=== PATIENT | female | born 1995 | race Caucasian/White ===

== ENCOUNTER 2018-08-12 03:36 | Emergency (ER) | payer SELFPAY ==
[2018-08-12] MEDS ORDERED: NS 1,000 ML IV ONE (03:41)
--- NOTE | 2018-08-12 03:41 | EDPHY ---
H & P Stated Complaint: abd pain for months now diarrhea with poss blood Time Seen by Provider: 08/12/18 03:41 HPI/ROS: HPI CHIEF COMPLAINT: Bloody diarrhea HISTORY OF PRESENT ILLNESS: Patient is a 22-year-old female, history of attention deficit hyperactivity disorder, otherwise healthy, presents emergency room with diarrhea that she believes had blood in it. She describes it orange discoloration. She states she did not have anything to eat last 24 hr a she has been studying for final exams. She has not had any vomiting of blood. She states she denies any hematemesis or black tarry stool. She woke up this morning around 330 in the morning and had lower crampy abdominal pain it lasted very briefly probably 30 secs and then had a diarrhea bowel movement orange discoloration. No bright red blood. No fever, no vomiting. Denies any chest pain or shortness of breath. Her abdominal cramping resolved. Denies black stool black tarry stool, denies vomiting blood. She describes it as are orange light discoloration. Past Medical History: Patient denies significant medical history except for attention deficit hyperactivity disorder. She does believe she may have IBS. Past Surgical History: Denies surgical history Social History: Denies drug use alcohol tobacco. [employer] student. Family History: Noncontributory ROS REVIEW OF SYSTEMS: 10 Systems were reviewed and negative with the exception of the elements mentioned in the history of present illness. Exam Constitutional triage nursing summary reviewed, vital signs reviewed, awake/ alert. Eyes normal conjunctivae and sclera, EOMI, PERRLA. HENT normal inspection, atraumatic, moist mucus membranes, no epistaxis, neck supple/ no meningismus, no raccoon eyes. Respiratory clear to auscultation bilaterally, normal breath sounds, no respiratory distress, no wheezing. Cardiovascular rate normal, regular rhythm, no murmur, no edema, distal pulses normal. Gastrointestinal no significant tenderness on exam soft, non-tender, no rebound , no guarding, normal bowel sounds, no distension, no pulsatile mass. Genitourinary no CVA tenderness. Musculoskeletal no midline vertebral tenderness, full range of motion, no calf swelling, no tenderness of extremities, no meningismus, good pulses, neurovascularly intact. Skin pink, warm, & dry, no rash, skin atraumatic. Neurologic awake, alert and oriented x 3, AAOx3, moves all 4 extremities equally, motor intact, sensory intact, CN II-XII intact, normal cerebellar, normal vision, normal speech. Psychiatric normal mood/affect. Heme/Lymph/Immune no lymphadenopathy. Differential Diagnosis: Differential diagnosis includes but is not limited to and in no particular order: Diarrhea illness, colitis, diverticulitis, hemorrhoidal bleeding, dehydration, electrolyte disturbance Medical Decision Making: Plan for this patient IV establishment with blood draw , gentle IV fluids, basic labs, stool studies, re-evaluate. Re-evaluation: Patient is resting comfortably at this time 6:41 a.m.. She has not had any abdominal pain or vomiting here. Stool studies are pending. Negative for blood. Electrolytes appropriate, white blood cell count appropriate. Plan for discharge home. She is comfortable this plan. We discussed return precautions she understands to return to the emergency room she develops worsening abdominal pain, fever, vomiting, not doing well. Source: Patient - Personal History LMP (Females 10-55): 15-21 Days Ago Current Tetanus/Diphtheria Vaccine: Yes Current Tetanus Diphtheria and Acellular Pertussis (TDAP): Yes - Medical/Surgical History Hx Asthma: No Hx Chronic Respiratory Disease: No Hx Diabetes: No Hx Cardiac Disease: No Hx Renal Disease: No Hx Cirrhosis: No Hx Alcoholism: No Hx HIV/AIDS: No Hx Splenectomy or Spleen Trauma: No - Social History Smoking Status: Never smoked Constitutional: Initial Vital Signs Temperature (C) 37.1 C 08/12/18 03:37 Heart Rate 98 08/12/18 03:37 Respiratory Rate 16 08/12/18 03:37 Blood Pressure 91/71 L 08/12/18 03:37 O2 Sat (%) 96 08/12/18 03:37 O2 Delivery Mode Room Air Allergies/Adverse Reactions: Penicillins Allergy (Verified 08/12/18 03:40) Home Medications: Medication Instructions Recorded Adderall Xr 10 mg Capsule 08/12/18 Medical Decision Making - Data Points Laboratory Results: Laboratory Results 08/12/18 04:00 08/12/18 04:00 08/12/18 08/12/18 08/12/18 04:25 04:15 04:00 WBC RBC Hgb Hct MCV MCH MCHC RDW Plt Count MPV Neut % (Auto) Lymph % (Auto) [place] % (Auto) Eos % (Auto) Baso % (Auto) Nucleat RBC Rel Count Absolute Neuts (auto) Absolute Lymphs (auto) Absolute Monos (auto) Absolute Eos (auto) Absolute Basos (auto) Absolute Nucleated RBC Immature Gran % Immature Gran # PT INR APTT Sodium Potassium Chloride Carbon Dioxide Anion Gap BUN Creatinine Estimated GFR Glucose Calcium Total Bilirubin Conjugated Bilirubin Unconjugated Bilirubin AST ALT Alkaline Phosphatase Total Protein Albumin Lipase Beta HCG, Qual NEGATIVE Urine Color YELLOW Urine Appearance HAZY Urine pH 5.0 (5.0-7.5) Ur Specific [place] 1.028 (1.002-1.030) Urine Protein 2+ H (NEGATIVE) Urine Ketones 2+ H (NEGATIVE) Urine Blood NEGATIVE (NEGATIVE) Urine Nitrate NEGATIVE (NEGATIVE) Urine Bilirubin NEGATIVE (NEGATIVE) Urine Urobilinogen NEGATIVE EU EU (0.2-1.0) Ur Leukocyte Esterase NEGATIVE (NEGATIVE) Urine RBC 1-3 /hpf /hpf (0-3) Urine WBC 3-5 /hpf H /hpf (0-3) Ur Epithelial Cells TRACE /lpf /lpf (NONE-1+) Urine Mucus 4+ /lpf H /lpf (NONE-1+) Urine Glucose NEGATIVE (NEGATIVE) Stool Occult Bld Scrn NEGATIVE (NEGATIVE) 08/12/18 08/12/18 08/12/18 04:00 04:00 04:00 WBC 6.42 10^3/uL 10^3/uL (3.80-9.50) RBC 4.43 10^6/uL 10^6/uL (4.18-5.33) Hgb 13.6 g/dL g/dL (12.6-16.3) Hct 40.0 % % (38.0-47.0) MCV 90.3 fL fL (81.5-99.8) MCH 30.7 pg pg (27.9-34.1) MCHC 34.0 g/dL g/dL (32.4-36.7) RDW 11.4 % L % (11.5-15.2) Plt Count 224 10^3/uL 10^3/uL (150-400) MPV 10.4 fL fL (8.7-11.7) Neut % (Auto) 54.6 % % (39.3-74.2) Lymph % (Auto) 34.7 % % (15.0-45.0) [place] % (Auto) 8.4 % % (4.5-13.0) Eos % (Auto) 1.6 % % (0.6-7.6) Baso % (Auto) 0.5 % % (0.3-1.7) Nucleat RBC Rel Count 0.0 % % (0.0-0.2) Absolute Neuts (auto) 3.51 10^3/uL 10^3/uL (1.70-6.50) Absolute Lymphs (auto) 2.23 10^3/uL 10^3/uL (1.00-3.00) Absolute Monos (auto) 0.54 10^3/uL 10^3/uL (0.30-0.80) Absolute Eos (auto) 0.10 10^3/uL 10^3/uL (0.03-0.40) Absolute Basos (auto) 0.03 10^3/uL 10^3/uL (0.02-0.10) Absolute Nucleated RBC 0.00 10^3/uL 10^3/uL (0-0.01) Immature Gran % 0.2 % % (0.0-1.1) Immature Gran # 0.01 10^3/uL 10^3/uL (0.00-0.10) PT 13.2 SEC SEC (12.0-15.0) INR 1.04 (0.83-1.16) APTT 30.7 SEC SEC (23.0-38.0) Sodium 140 mEq/L mEq/L (135-145) Potassium 3.8 mEq/L mEq/L (3.5-5.2) Chloride 104 mEq/L mEq/L (97-110) Carbon Dioxide 21 mEq/l L mEq/l (22-31) Anion Gap 15 mEq/L H mEq/L (6-14) BUN 19 mg/dL mg/dL (7-23) Creatinine 0.7 mg/dL mg/dL (0.6-1.0) Estimated GFR > 60 Glucose 85 mg/dL mg/dL (70-100) Calcium 9.7 mg/dL mg/dL (8.5-10.4) Total Bilirubin 1.6 mg/dL H mg/dL (0.1-1.4) Conjugated Bilirubin 0.2 mg/dL mg/dL (0.0-0.5) Unconjugated Bilirubin 1.4 mg/dL H mg/dL (0.0-1.1) AST 24 IU/L IU/L (14-46) ALT 33 IU/L IU/L (9-52) Alkaline Phosphatase 54 IU/L IU/L (38-126) Total Protein 7.8 g/dL g/dL (6.3-8.2) Albumin 4.9 g/dL g/dL (3.5-5.0) Lipase 148 IU/L IU/L (23-300) Beta HCG, Qual Urine Color Urine Appearance Urine pH Ur Specific [place] Urine Protein Urine Ketones Urine Blood Urine Nitrate Urine Bilirubin Urine Urobilinogen Ur Leukocyte Esterase Urine RBC Urine WBC Ur Epithelial Cells Urine Mucus Urine Glucose Stool Occult Bld Scrn Medications Given: Discontinued Medications Sodium Chloride (Ns) 1,000 mls @ 0 mls/hr IV EDNOW ONE; Wide Open PRN Reason: Protocol Stop: 08/12/18 03:42 Last Admin: 08/12/18 04:02 Dose: 1,000 mls Departure - Departure Disposition: Home, Routine, Self-Care Condition: Good Instructions: Dehydration (ED), Acute Diarrhea (ED) Additional Instructions: 1. Return to the emergency room if develops worsening abdominal pain, fever, vomiting, not doing well Referrals: NONE *PRIMARY CARE P,. [Primary Care Provider] - As per Instructions [facility],. [Clinic] - As per Instructions
[2018-08-12 04:21] LABS: PLATELET COUNT 224 10^3/uL (150-400)
[2018-08-12 04:31] LABS: INR 1.04 (0.83-1.16); PROTIME(PATIENT) 13.2 SEC (12.0-15.0)
[2018-08-12 06:07] VITALS: BP 96/61
== END 2018-08-12 06:46 | disposition home or self-care (01) ==
DX: R19.7 Diarrhea, unspecified (principal); E86.0 Dehydration